=== PATIENT | female | born 1950 | race Caucasian/White ===

== ENCOUNTER 2017-02-05 18:54 | Emergency (ER) | payer MEDICARE, BC ==
[2017-02-05] MEDS ORDERED: MECLIZINE HCL 25 MG TABLET PO ONE (20:22)
[2017-02-05] MEDS ORDERED: ONDANSETRON 4 MG TAB.RAPDIS PO ONE (20:22)
--- NOTE | 2017-02-05 20:24 | ER Document Report ---
ED Medical Screen (RME) - General Chief Complaint: Dizziness Stated Complaint: DIZZY,HEADACHE,CHEST HEAVYNESS Notes: This 66-year-old female patient reports she was out in the yard about 4 PM today watering lanier when she developed a dizzy sensation and felt like she was leaning to the left. The symptoms would last for a couple minutes at a time and Occurring off and on for about half an hour. She did notice dizziness seemed to be worse if she turned her head certain ways. There is also a numbness to the legs, heavy feeling to the chest and muscle spasm in the posterior neck. At this time she does feel much better, but still feels heavy headed and some nausea. I have greeted and performed a rapid initial assessment of this patient. A comprehensive ED assessment and evaluation of the patient, analysis of test results and completion of the medical decision making process will be conducted by additional ED providers. TRAVEL OUTSIDE OF THE [place] IN LAST 30 DAYS: No - Related Data Allergies/Adverse Reactions: No Known Allergies Allergy (Verified 02/05/17 20:19) Past Medical History Renal/ Medical History: Denies: Hx Peritoneal Dialysis Physical Exam - Vital signs Vitals: Temp Pulse Resp BP Pulse Ox 98.2 F 98 22 H 133/70 H 98 02/05/17 19:04 02/05/17 19:04 02/05/17 19:04 02/05/17 19:04 02/05/17 19:04 Course - Vital Signs Vital signs: Temp Pulse Resp BP Pulse Ox 98.2 F 98 22 H 133/70 H 98 02/05/17 19:04 02/05/17 19:04 02/05/17 19:04 02/05/17 19:04 02/05/17 19:04
[2017-02-05 21:25] LABS: ABSOLUTE BASOPHILS # (AUTO) 0.1 10^3/uL (0.0-0.2); ABSOLUTE EOSINOPHILS # (AUTO) 0.2 10^3/uL (0.0-0.6); ABSOLUTE LYMPHOCYTES (AUTO) 1.6 10^3/uL (0.5-4.7); ABSOLUTE MONOCYTES (AUTO) 0.4 10^3/uL (0.1-1.4); ABSOLUTE NEUT (AUTO) 7.1 10^3/uL (1.7-8.2); BASOPHILS % (AUTO) 0.6 % (0-2); EOSINOPHILS % (AUTO) 2.2 % (0-6); HEMATOCRIT 42.5 % (36.0-47.0); HEMOGLOBIN 14.4 g/dL (12.0-15.5); HGB HCT DIFFERENCE 0.7; LYMPHOCYTES % (AUTO) 16.9 % (13-45); MEAN CORPUSCULAR HEMOGLOBIN 29.2 pg (27.0-33.4); MEAN CORPUSCULAR HGB CONC 33.7 g/dL (32.0-36.0); MEAN CORPUSCULAR VOLUME 87 fl (80-97); MONOCYTES % (AUTO) 4.8 % (3-13); RED BLOOD COUNT 4.91 10^6/uL (3.72-5.28); RED CELL DISTRIBUTION WIDTH 13.8 % (11.5-14.0); SEGMENTED NEUTROPHILS % (AUTO) 75.5 % (42-78); WHITE BLOOD COUNT 9.4 10^3/uL (4.0-10.5)
[2017-02-05 21:38] LABS: ALANINE AMINOTRANSFERASE 98 U/L (9-52); ALBUMIN 4.2 g/dL (3.5-5.0); ALKALINE PHOSPHATASE 93 U/L (38-126); ANION GAP 13 (5-19); ASPARTATE AMINO TRANSFERASE 139 U/L (14-36); BILIRUBIN,DIRECT 0.6 mg/dL (0.0-0.4); BILIRUBIN,TOTAL 1.4 mg/dL (0.2-1.3); BLOOD UREA NITROGEN 18 mg/dL (7-20); CALCIUM 9.8 mg/dL (8.4-10.2); CARBON DIOXIDE 28 mmol/L (22-30); CHLORIDE 100 mmol/L (98-107); CREATINE KINASE 48 U/L (30-135); GLUCOSE 114 mg/dL (75-110); POTASSIUM 4.2 mmol/L (3.6-5.0); SODIUM 141.4 mmol/L (137-145); TOTAL PROTEIN 7.9 g/dL (6.3-8.2)
[2017-02-05 21:49] LABS: CREATINE KINASE MB 0.31 ng/mL (<4.55)
[2017-02-05 21:51] LABS: TROPONIN I < 0.012 ng/mL
[2017-02-05] MEDS ORDERED: ONDANSETRON ODT 4 MG TAB (6 TAB/DSPK) PO PRN (23:27)
--- NOTE | 2017-02-05 23:27 | ER Document Report ---
ED General - General Chief Complaint: Dizziness Stated Complaint: DIZZY,HEADACHE,CHEST HEAVYNESS Notes: Patient is a 66-year-old female without past medical history who presents after having acute onset of vertigo approximately 6 hours prior to my assessment. She states she was outside working in her garden when she moved her head abruptly and began to feel a sensation of vertigo and pulling towards her left side. She states after the symptoms started she began to develop a dull, mild, throbbing diffuse headache as well as chest pressure. Also notes that she had tingling in her hands and feet bilaterally as well as perioral anesthesia. No history of similar symptoms in the past. At the time of my assessment she states that her symptoms have now almost completely resolved including her chest discomfort. She has not seen her primary care doctor. She notes that moving her head towards the left seems to trigger her symptoms. The symptoms do resolve spontaneously although she notes the nausea medicine given to her in triage did assist with her nausea. TRAVEL OUTSIDE OF THE [place] IN LAST 30 DAYS: No - Related Data Allergies/Adverse Reactions: No Known Allergies Allergy (Verified 02/05/17 20:19) Past Medical History - General Information source: Patient - Social History Smoking Status: Never Smoker Frequency of alcohol use: None Drug Abuse: None Lives with: Spouse/Significant other Family History: Reviewed & Not Pertinent Patient has suicidal ideation: No Patient has homicidal ideation: No Renal/ Medical History: Denies: Hx Peritoneal Dialysis Review of Systems - Review of Systems Notes: Constitutional: Negative for fever. HENT: Negative for sore throat. Eyes: Negative for visual changes. Cardiovascular: Positive for chest pain. Respiratory: Negative for shortness of breath. Gastrointestinal: Negative for abdominal pain, vomiting or diarrhea. Genitourinary: Negative for dysuria. Musculoskeletal: Negative for back pain. Skin: Negative for rash. Neurological: Positive for headaches, negative for weakness or numbness. 10 point ROS negative except as marked above and in HPI. Physical Exam - Vital signs Vitals: Temp Pulse Resp BP Pulse Ox 98.2 F 98 22 H 133/70 H 98 02/05/17 18:58 02/05/17 18:58 02/05/17 18:58 02/05/17 18:58 02/05/17 18:58 Interpretation: Normal Notes: PHYSICAL EXAMINATION: GENERAL: Well-appearing, well-nourished and in no acute distress. HEAD: Atraumatic, normocephalic. EYES: Pupils equal round and reactive to light, extraocular movements intact, sclera anicteric, conjunctiva are normal. ENT: nares patent, oropharynx clear without exudates. Moist mucous membranes. NECK: Normal range of motion, supple without lymphadenopathy LUNGS: Breath sounds clear to auscultation bilaterally and equal. No wheezes rales or rhonchi. HEART: Regular rate and rhythm without murmurs ABDOMEN: Soft, nontender, normoactive bowel sounds. No guarding, no rebound. No masses appreciated. EXTREMITIES: Normal range of motion, no pitting or edema. No cyanosis. NEUROLOGICAL: Face symmetric. Tongue protrudes midline. Extraocular motions intact. Pupils are 2 mm and equally reactive. Normal speech, normal gait. 5 out of 5 strength in both the distal and proximal upper and lower extremities bilaterally. Sensation is grossly intact throughout. Finger to nose testing normal. Pronator drift normal. Positive Demetria-Hallpike been around the left. Negative on the right PSYCH: Normal mood, normal affect. SKIN: Warm, Dry, normal turgor, no rashes or lesions noted. Course - Re-evaluation Re-evalutation: 02/05/17 23:25 Presentation of vertigo that appears most consistent with a benign peripheral vertigo. Patient has no abnormal findings on exam. Normal cerebellar testing, steady even gait. Able to walk on heels and toes. Normal proprioception. Patient is not an elevated risk for a cerebellar infarction given absence of significant risk factors. Patient did have improvement of symptoms here in the emergency department with meclizine. She has a grossly positive Demetria-Hallpike maneuver on the left. Normal HINTS exam. Suspect BPPV. I do not believe neurologic imaging is indicated at this time based on physical examination and clinical history. Regarding patient's brief episode of chest pain during this period of vertigo, I suspect is likely anxiety as she admits that once her symptoms of vertigo resolved the pain went away completely. Her EKG here is unremarkable and a single troponin is normal. This troponin was drawn greater than 6 hours after her initial event and she has not had recurrence of chest pain since that time. Regarding her brief headache, likewise suspect this was related to the episode of vertigo as it did recure here in the ED after performing the Dixs Hallpike and resolved with her vertigo resolved. At this time will discharge with return precautions and follow-up recommendations. Verbal discharge instructions given a the bedside and opportunity for questions given. Medication warnings reviewed. Patient is in agreement with this plan and has verbalized understanding of return precautions and the need for primary care follow-up in the next 24-72 hours. - Vital Signs Vital signs: Temp Pulse Resp BP Pulse Ox 98.0 F 67 18 144/61 H 98 02/05/17 23:56 02/05/17 23:56 02/05/17 23:56 02/05/17 23:56 02/05/17 23:56 - Laboratory Result Diagrams: 02/05/17 21:14 02/05/17 21:14 Laboratory results interpreted by me: 02/05/17 21:14 Glucose 114 H Total Bilirubin 1.4 H Direct Bilirubin 0.6 H AST 139 H ALT 98 H - EKG Interpretation by Me Additional EKG results interpreted by me: 02/06/17 03:32 Normal sinus rhythm. Rate 72. No ST elevations or depressions. QTC is 430. Discharge - Discharge Clinical Impression: BPPV (benign paroxysmal positional vertigo) Qualifiers: Laterality: left Qualified Code(s): H81.12 - Benign paroxysmal vertigo, left ear Condition: Good Disposition: HOME, SELF-CARE Additional Instructions: Your symptoms today are consistent with BPPV also known as benign paroxsymal positional vertigo. You should take meclazine 25mg every 6 hours as needed. You can also look up the "Safia" maneuver which is a natural way to help improve your symptoms. Please return if you have chest pain, persistent vomiting, focal weakness, numbness, confusion, inability to walk, chest pain, or any other symptoms that are worrisome to you. Prescriptions: Meclizine HCl 25 mg PO Q6HP PRN #30 tablet PRN Reason:
[2017-02-06 00:02] VITALS: BP 144/61
--- NOTE | 2017-02-06 21:49 | EKG REPORT ---
SEVERITY:- NORMAL ECG - SINUS RHYTHM : Confirmed by: Jovana Andujar MD 06-Feb-2017 21:48:33
== END 2017-02-06 00:02 | disposition home or self-care (01) ==
LOC: ER 18:54
DX: H81.12 Benign paroxysmal vertigo, left ear (principal); R51 Headache; R07.89 Other chest pain; R20.2 Paresthesia of skin; R20.0 Anesthesia of skin; R11.0 Nausea
CPT/HCPCS: 93005; 99284; 36415; 82553; 82550; 85025; 80053; 84484; 93010; A9270